=== PATIENT | male | born 1985 | race Caucasian/White ===

== ENCOUNTER 2018-10-13 19:47 | Emergency (ER) | payer BC ==
[~2018-10-13] VITALS: Ht 175.3 cm; Wt 88.5 kg
--- NOTE | 2018-10-13 21:01 | NUR ---
Patient discharged to home in stable conditon. Written and verbal after care instructions given. Patient verbalizes understanding of instructions.
== END 2018-10-13 21:01 | disposition home or self-care (01) ==
LOC: ER 19:50
DX: G89.11 Acute pain due to trauma (principal); M25.562 Pain in left knee; M25.531 Pain in right wrist; Z88.8 Allergy status to other drugs, medicaments and biological substances; V23.4XXA Motorcycle driver injured in collision with car, pick-up truck or van in traffic accident, initial encounter; Y93.89 Activity, other specified; Y92.410 Unspecified street and highway as the place of occurrence of the external cause; Y99.8 Other external cause status
CPT/HCPCS: 73090; 73130; A4663